=== PATIENT | female | born 1975 | race Caucasian/White ===

== ENCOUNTER 2023-02-10 18:10 | Emergency (ER) | payer OTHER ==
[2023-02-10] MEDS ORDERED: lidocaine 1% 20 ML MDV SUBQ ONE (20:17)
--- NOTE | 2023-02-10 20:49 | ED Physician Documentation ---
PD HPI SKIN - Stated complaint Stated Complaint: FOOT LAC - Chief complaint Chief Complaint: Laceration - History obtained from History obtained from: Patient - Additional information Additional information: HPI from patient. At approximately 5:30 PM this afternoon, patient was at a friend's house walking down a spiral staircase when the back of her right heel caught on the metal edge of the stair above the when she was stepping on, causing a laceration to the posterior aspect of the right heel. Denies numbness, weakness. She is able to fully dorsi and plantarflex the right foot without weakness or pain. She is up-to-date on tetanus. Review of Systems Musculoskeletal: reports: Extremity pain Neurologic: denies: Focal weakness, Numbness PD PAST MEDICAL HISTORY - Past Medical History Past Medical History: Yes Cardiovascular: None Respiratory: None Neuro: None Endocrine/Autoimmune: None GI: None HELMET COVERER: Breast cancer : None HEENT: None Psych: None Musculoskeletal: None Derm: None - Past Surgical History Past Surgical History: Yes General: Other /HELMET COVERER: Other - Present Medications Home Medications: Ambulatory Orders Medication Instructions Recorded Confirmed Aspirin Chewable [[facility] 81 mg PO DAILY 02/10/23 02/10/23 Aspirin] - Allergies Allergies/Adverse Reactions: Allergies Allergy/AdvReac Type Severity Reaction Status Date / Time No Known Drug Allergies Allergy Verified 02/10/23 18:23 - Social History Does the pt smoke?: No Smoking Status: Never smoker Does the pt drink ETOH?: No Does the pt have substance abuse?: No - Immunizations Immunizations are current?: Yes - POLST Patient has POLST: No PD ED PE NORMAL - Vitals Vital signs reviewed: Yes - General General: Alert and oriented X 3, No acute distress, Well developed/nourished - Neuro Neuro: No motor deficit (5/5 dorsiflexion and plantarflexion (right foot). LTS intact right foot, toes), No sensory deficit PD ED PE EXPANDED - Extremities Feet visual: 1 - laceration (laceration to muscle/tendon without involvement of these structures, continguous with (2), total of 8 cm length) 2 - laceration (contiguous with (1)) Results - Vitals Vitals: Vital Signs - 24 hr 02/10/23 02/10/23 18:16 21:55 Temperature 36.9 C Heart Rate 80 83 Respiratory 16 14 Rate Blood Pressure 103/69 132/76 H O2 Saturation 100 100 Oxygen O2 Source Room air Procedures - Laceration (location) Foot right Posterior Length in cm: 8 Wound type: Linear, Into subcut fat, Clean Neurovascular status: Sensory intact, Motor intact, Vascular intact Tendon involvement: Tendon intact Anesthesia: Lidocaine 1% Wound preparation: Chlorhexadine, Irrigated copiously NS, Wound explored Skin layer closure: Nylon, Running, Size #-0 - enter number (3-0) Other: Patient tolerated well, No complications, Neurovascular intact, Dressing applied, Tetanus UTD PD Medical Decision Making - ED course Complexity details: considered differential, d/w patient ED course: Presents with long laceration to the posterior aspect of the right heel/foot. No bony tenderness. The laceration was repaired as per procedure note, above, using 2 separate running sutures and then 1 simple interrupted suture at the lateral end of the wound due to a slight "dog ear" effect which was corrected with the single, interrupted suture. Patient is provided a splint and crutches so as to minimize movement/weightbearing which should allow for faster healing and minimize risk of interruption of the sutures/suture line. I explained the reasoning for the splint and crutches, but explained that she is allowed to be weightbearing as tolerated (but that she would be best using the splint and crutches during the day to minimize these risks as above). Return precautions were discussed. I advised her to follow-up with her primary care provider in 10 to 14 days for suture removal. Departure - Departure Disposition: 01 Home, Self Care Clinical Impression: Laceration Condition: Good Instructions: ED Crutch Walking, ED Laceration Ext Sutr Stap Tape Follow-Up: GILLIAN RIVERA [place] [Primary Care Provider] - Comments: You have been provided a splint and crutches so as to minimize the movement of the right foot/ankle, allowing for faster healing and minimizing the risk of disruption of the sutures and/for the area of repair. You can weight-bear as tolerated, but you should use the splint and crutches for at least the first 2 or 3 days (when the swelling, and thus the tension on the wound, will be the greatest). Follow-up with your primary care provider in 10 to 14 days for suture removal. Discharge Date/Time: 02/10/23 22:00
[2023-02-10] MEDS ORDERED: BACITRACIN ZINC OINT 1 PACKET TOP STA (21:30)
[2023-02-10 22:03] VITALS: BP 132/76
== END 2023-02-10 22:00 | disposition home or self-care (01) ==
LOC: ED 18:10
DX: S91.311A Laceration without foreign body, right foot, initial encounter (principal); W26.8XXA Contact with other sharp object(s), not elsewhere classified, initial encounter; Y93.89 Activity, other specified; Y92.89 Other specified places as the place of occurrence of the external cause
CPT/HCPCS: 12004; 99283; A9270